=== PATIENT | male | born 1950 | race Caucasian/White ===

== ENCOUNTER → 2017-07-01 | Outpatient (CLI) | payer MEDICARE, MEDICAID ==
[~2017-07-01] MED LIST: ALPR1TAB2 PO; BARIUM SULFATE 450ML ORAL SUSP ONE; CARB-32 PO
== END | disposition home or self-care (01) ==
LOC: CT 08:16
PROVIDERS: ATTEND Internal Medicine Gastroenterology
DX: N40.0 Benign prostatic hyperplasia without lower urinary tract symptoms (principal); E27.8 Other specified disorders of adrenal gland; R13.10 Dysphagia, unspecified
CPT/HCPCS: 74176

== ENCOUNTER 2017-07-26 09:53 | Day surgery (SDC) | payer MEDICARE, MEDICAID ==
[2017-07-26] VITALS (14 sets, daily range): BP systolic 133–144; BP diastolic 58–77
[~2017-07-26] VITALS: Ht 165.1 cm; Wt 68.0 kg
[2017-07-26] MEDS ORDERED: FENTANYL CITRATE/PF 50MCG/ML 2ML VIAL ONE (10:23)
[2017-07-26] MEDS ORDERED: FENTANYL CITRATE/PF 50MCG/ML 2ML VIAL IV ONE (11:15)
[2017-07-26] MEDS ORDERED: FENTANYL CITRATE/PF 50MCG/ML 2ML VIAL IV SCH (11:15)
[2017-07-26] MEDS ORDERED: ALPR1TAB2 PO (11:22)
[2017-07-26] MEDS ORDERED: CARB-32 PO (11:22)
[2017-07-26] MEDS ORDERED: LIDOCAINE HCL 1% 20ML VIAL (Pyxis) INJ ONE (12:03)
[2017-07-26] MEDS ORDERED: SODIUM BICARBONATE 4.2% 5 MEQ/10 ML DISP.SYRIN IV ONE (12:03)
[2017-07-26] MEDS ORDERED: ACETAMINOPHEN 325MG TABLET PO ONE (13:30)
[2017-07-26] MEDS ORDERED: HYDROCODONE/ACETAMINOPHEN 5/325MG TABLET PO NR (14:30)
[2017-07-26 15:38] LABS: HEMOGLOBIN 11.2 g/dL (14.0-18.0)
== END 2017-07-26 15:40 | disposition home or self-care (01) ==
LOC: RAD 09:53
PROVIDERS: ATTEND Internal Medicine Gastroenterology
DX: C22.7 Other specified carcinomas of liver (principal); K74.69 Other cirrhosis of liver; F32.9 Major depressive disorder, single episode, unspecified; G20 Parkinson's disease
CPT/HCPCS: 36415; 47000; 77012; 85014; 85018; 88307; J3010; J3490; 99152; 99153